=== PATIENT | female | born 1970 | race Caucasian/White ===

== ENCOUNTER → 2022-04-04 | Day surgery (SDC) | payer BC ==
--- NOTE | 2022-04-01 08:57 | RAD REPORT ---
EXAM DESCRIPTION: RAD - Chest Pa And Lat (2 Views) - 04/01/2022 8:40 am CLINICAL HISTORY: Pre op pending colonoscopy COMPARISON: None TECHNIQUE: Frontal and lateral views of the chest were obtained. FINDINGS: The lungs are clear. Heart size is normal and central vasculature is within normal limit s. No pleural effusion or pneumothorax seen. No acute bony finding noted. No aortic abnormality. IMPRESSION: No acute cardiopulmonary process.
[2022-04-01 09:08] LABS: Absolute Lymphocytes (CBC) 1.8 K/uL (0.7-4.9); Hematocrit 40.8 % (36.0-45.0); Lymphocytes % 24.6 % (15.3-44.8); MCV 86.4 fL (80-100); MPV 8.5 fL (7.6-11.3); RBC Red Blood Cell Count 4.72 M/uL (3.86-4.86)
[2022-04-01 09:19] LABS: Potassium 4.1 mmol/L (3.5-5.1)
--- NOTE | 2022-04-01 12:29 | EKG ---
Test Date: 2022-04-01 Test Time: 08:29:52 Apprentice Painter Brush: YAZMIN MEASUREMENT RESULTS: Intervals: Rate: 65 MT: 150 QRSD: 80 QT: 418 QTc: 434 [place]: P: 48 MT: 150 QRS: 20 T: 33 INTERPRETIVE STATEMENTS: Normal sinus rhythm Normal ECG No previous ECG available for comparison Electronically Signed On 04-01-22 12:27:47 CDT by Jero Saldana
[~2022-04-04] MED LIST: LIDOCAINE 1% MPF 5 ML VIAL ONE; Ringers Lactate 1,000 ML IV ONE; propofoL 200 MG/20 ML VIAL IV ONE
--- NOTE | 2022-04-04 08:58 | ENDO RPT ---
[address], [address] COLONOSCOPY PROCEDURE REPORT EXAM DATE: 04/04/2022 PATIENT NAME: Rosario Coleman MR #: [id number] BIRTHDATE: 1970 ATTENDING: Mj Arceo M.D. STATUS: outpatient MOTION DESIGNER: Holli Huynh RN INDICATIONS: The patient is a 51 yr old Female here for a colonoscopy due to colon cancer screening PROCEDURE PERFORMED: Colonoscopy MEDICATIONS: Per Anesthesia. ESTIMATED BLOOD LOSS: None CONSENT: The patient understands the risks and benefits of the procedure and understands that these risks include, but are not limited to: sedation, allergic reaction, infection, perforation and/or bleeding. Alternative means of evaluation and treatment include, among others: physical exam, x-rays, and/or surgical intervention. The patient elects to proceed with this endoscopic procedure. DESCRIPTION OF PROCEDURE: During intra-op preparation period all mechanical medical equipment was checked for proper function. Hand hygiene and appropriate measures for infection prevention was taken. Procedure, possible complications, alternatives including, but not limited to possibility of bleeding, perforation, tear, infection, sepsis, need for surgery, need for blood transfusion, were explained to the patient. After the risks, benefits and alternatives of the procedure were thoroughly explained, Informed consent was verified, confirmed and timeout was successfully executed by the treatment team. The patient was placed in the left lateral position. A digital rectal exam was performed and revealed no abnormalities of the rectum. After appropriate level of anesthesia, the scope was passed. The EC-[id number] ([id number]) endoscope was introduced through the anus and advanced to the cecum, which was identified by the ileocecal valve. The quality of the prep was good. The instrument was then slowly withdrawn as the colon was fully examined. Scope withdrawal time was 12 minutes. COLON FINDINGS: Small internal hemorrhoids were found. Retroflexed views revealed no abnormalities. The scope was then completely withdrawn from the patient and the procedure terminated. ADVERSE EVENTS: There were no complications. IMPRESSIONS: Small internal hemorrhoids RECOMMENDATIONS: 1. fiber rich diet 2. follow-up: office 1 week(s) 3. Metamucil 4. increase dietary water RECALL: Return in 10 year(s) for Colonoscopy. Mj Arceo M.D. eSigned: Mj Arceo M.D. 04/04/2022 8:57 AM cc: Shilo Hazel M.D. CPT CODES: ICD9 CODES: PATIENT NAME: Rosario Coleman MR#: [id number]
[2022-04-04 09:16] VITALS: O2SAT 100
[2022-04-04 09:21] VITALS: BP 109/57; TEMP 97.9
== END ==
LOC: OR 07:08
PROVIDERS: ATTEND Surgery
PROC: 0DJD8ZZ Inspection of Lower Intestinal Tract, Via Natural or Artificial Opening Endoscopic (ICD-10-PCS; principal; 2022-04-04 08:30)
DX: Z12.11 Encounter for screening for malignant neoplasm of colon (principal); K64.8 Other hemorrhoids; Z72.0 Tobacco use
CPT/HCPCS: 93005; 85025; 80048; 36415; 71046; 45378; J2704; J2001; J7120